=== PATIENT | female | born 1995 | race Asian ===

== ENCOUNTER 2019-11-27 10:00 | Emergency (ER) | payer MEDICAID, SELFPAY ==
[2019-11-27 10:13] VITALS: BP 112/73; PULSE 82; RESP 16; TEMP 36.4; O2SAT 100
[2019-11-27 10:17] VITALS: BP 112/73; PULSE 82; RESP 16; TEMP 36.4; O2SAT 100; BMI 22.8
--- NOTE | 2019-11-27 10:56 | ED.FEMALEGU ---
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 HE HAS AN INSURANCE PROBLEM Related Data Allergies Allergy/AdvReac Type Severity Reaction Status Date / Time No Known Allergies Allergy Unverified 11/13/19 19:51 [No Known Allergies*] Review of Systems Review of Systems: NO ABDOMINAL PAIN NO FEVER NO CHILLS NO VOMITING NO NEW SWELLING PMFSH Past Medical History Source: nursing notes reviewed Medical History Bartholin cyst Medical history reviewed with no changes No pertinent past medical history Social History Social History Alcohol intake: never Smoking Status: Never smoker Smoked in Last 30 Days: No Use of substances other than those prescribed or required for medical reasons: No Advance Directives: No Advance Directives Information Provided: No Physical Exam Vital Signs and I&O and Narrative: Vital Signs and I&O: Vital Signs Temp 97.6 F 11/27/19 10:17 Pulse 82 11/27/19 10:17 Resp 16 11/27/19 10:17 BP 112/73 11/27/19 10:17 Pulse Ox 100 11/27/19 10:17 Intake & Output 11/26/19 11/27/19 11/27/19 18:59 06:59 18:59 Weight 56.699 kg Body Mass Index 22.8 EXAM WELL-APPEARING COMFORTABLE NO ACUTE DISTRESS NECK IS SUPPLE, NO RESPIRATORY DISTRESS ABDOMEN IS SOFT AND NONTENDER PELVIC THERE IS NO EVIDENCE OF ABSCESS OR CELLULITIS AND THERE IS A PACHECO CATHETER IN PLACE NEURO A&O X3 Course Reevaluation(s) Reevaluation #1: word catheter was easily removed with no remaining discharge swelling no redness no sign of infection or abscess Discharge Plan Discharge Clinical Impression: Abscess of Bartholin's gland Patient Disposition: Home, Self-Care Additional Instructions: return to ER any time for any worse condition or concerns Follow with laser/electro optics technician doctor for further evaluation Referrals: Almas Scott MD [Physician] - None ( follow routinely with artist relationship manager for 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
== END 2019-11-27 11:40 | disposition home or self-care (01) ==
PROVIDERS: Emergency Provider Emergency Medicine; PCP General Practice
DX: N75.0 Cyst of Bartholin's gland (principal); Z48.00 Encounter for change or removal of nonsurgical wound dressing
CPT/HCPCS: 99284

== ENCOUNTER 2022-02-22 09:09 | Outpatient (REF) | payer OTHER, SELFPAY ==
[2022-02-22 09:58] LABS: COVID-19 Test Negative (Negative); IDNOW Serial# 16C4AD1C
== END 2022-02-22 09:10 | disposition home or self-care (01) ==
LOC: HO.LAB 09:09
PROVIDERS: Visit Provider Internal Medicine
DX: Z20.822 Contact with and (suspected) exposure to COVID-19 (principal)
CPT/HCPCS: 87635; C9803

== ENCOUNTER 2022-08-10 08:11 | Outpatient (REF) | payer BC, SELFPAY ==
[2022-08-11 00:56] LABS: CT PCR NOT DETECTED (Not Detect.); NG PCR NOT DETECTED (Not Detect.)
== END 2022-08-10 08:12 | disposition home or self-care (01) ==
LOC: HO.LNP 08:11
PROVIDERS: PCP General Practice; Visit Provider Obstetrics & Gynecology
DX: N76.4 Abscess of vulva (principal); T81.89XA Other complications of procedures, not elsewhere classified, initial encounter; R87.612 Low grade squamous intraepithelial lesion on cytologic smear of cervix (LGSIL); Z20.2 Contact with and (suspected) exposure to infections with a predominantly sexual mode of transmission
CPT/HCPCS: 0353U; 10061; 56405; 87070; 87205; 88305; 88312; 88342

== ENCOUNTER 2022-09-06 09:43 | Outpatient (REF) | payer BC, SELFPAY | END 2022-09-06 09:44 | disposition home or self-care (01) | LOC: HO.LNP 09:43 | PROVIDERS: PCP General Practice; Visit Provider Obstetrics & Gynecology | DX: R87.612 Low grade squamous intraepithelial lesion on cytologic smear of cervix (LGSIL) (principal); L98.499 Non-pressure chronic ulcer of skin of other sites with unspecified severity; T81.89XA Other complications of procedures, not elsewhere classified, initial encounter | CPT/HCPCS: 57454; 81025; 88305 ==

== ENCOUNTER 2022-09-06 09:43 | Outpatient (AMB) | payer BC, SELFPAY ==
--- NOTE | 2022-09-06 09:52 | MHC.OFFVIS ---
Intake Vital Signs 09/06/22 10:00 Height 5 ft 1 in Weight 141 lb 1.533 oz BMI 26.7 BP 114/66 Intake Visit Reasons: COLPO Appliance Servicer Required: No Information Interpreted: non-clinical & clinical Director Student Union: Director Student Union Present Accompanied by: Self / Same As Patient Allergies No Known Allergies [No Known Allergies*] Allergy (Unverified 09/06/22 10:00) Is last menstrual period known: Yes Last menstrual period: 08/10/22 HPI HPI Comments History of Present Illness Details Presenting for upper after left vulvar I&D abscess drainage and debridement. The pathology showed the following: Vulva, left labia majora, biopsy:? Skin/squamous mucosa with focal ulceration, reactive epithelial changes and marked acute and chronic inflammation with prominent plasma cells; negative for dysplasia.? See description and comment. The patient is doing well the left labial abscess has almost resolved not completed. 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 [employer] Sexual orientation: Straight/Heterosexual Gender identity: Female Female Reproductive History Menstrual Date of last menstrual period: 08/10/22 Review of Systems Const All systems reviewed & are unremarkable except as noted in HPI and below Physical Exam Vital Signs: Last Vital Signs BP 114/66 09/06/22 10:00 BMI result Body Mass Index 26.7 General: Yes no CVA tenderness External Female Exam: normal external appearance, normal appearance of the urethra and other (Left-sided 0.2 cm open incision still draining, no erythema) Speculum Exam - Vagina: normal appearance of the vagina, normal palpation, no lesions and no masses Speculum Exam - Cervix: normal appearance of the cervix, normal palpation, no lesions, no masses and nontender Bimanual exam- vagina & uterus: normal bimanual exam, normal palpation, uterine size normal, normal palpation, uterine shape normal, No Cervical tenderness present and non-tender Bimanual Exam- Adnexa, other: normal adnexae Back/Spine/Pelvis Back: no CVA tenderness Office Procedures Colposcopy Before the procedure was started discussed with the patient the procedure, alternatives & all the risks associated with the procedure (bleeding, infection, injury to vagina, bladder, vessels, possible need for transfusion with all its risks) then patient signed the consent Pap smear = LSIL Urine test done in the office was negative Speculum inserted, acetic acid used Colposcopy done Transformation zone seen, acetowhite lesions identified at 5+7 o?clock, cervical biopsies taken from 5+7 o?clock, ECC done afterwards. Vaginoscopy of the upper vagina showed no evidence of any aceto-white lesions Monsel solution used for hemostasis. The patient tolerated well . At the end the patient was instructed to call if temp>100.4, abdominal pain, n/v, bleeding; The patient was given the following instructions: nothing per vagina, no intercourse or bath tub use. All questions answered the patient verbalized understanding. Instructed the patient to make an appointment in 2 weeks for follow-up This note was generated with a voice recognition program. Some errors may have been overlooked during the review of this note. Sometimes these errors may affect the content or meaning of a given sentence. 70909-[id number] of cervix including upper vagina with biopsy and ECC Procedure code (CPT) selection complete Results AMB Test Urine AMB Test Urine Negative Last Edit by Danielle Zamudio CMA on 09/06/22 10:14 Assessment & Plan Assessment & Plan (1) LGSIL on Pap smear of cervix: Code(s): R87.612 - Low grade squamous intraepithelial lesion on cytologic smear of cervix (LGSIL) Plan: Colpo done, see procedure note (2) Nonhealing nonsurgical wound: Comment: Chronic Abscess of Left labia majora status post debridement Code(s): T14.8XXA - Other injury of unspecified body region, initial encounter Plan: Discussed with the patient the the pathology, the patient was reassured. Instructions given the patient to call in case left vulvar area is not healing and is persistently draining. All questions answered, the patient verbalized understanding Orders: Orders AMB Colposcopy Today R87.612 - Low grade squamous intraepithelial lesion on cytologic smear of cervix (LGSIL) AMB HCG Urine Test Today Z32.02 - Encounter for test, result negative Surgical Today R87.612 - Low grade squamous intraepithelial lesion on cytologic smear of cervix (LGSIL) Coding Level of Care Code Est Pt Level 3 (69903) Procedure Only Diagnoses LGSIL on Pap smear of cervix R87.612 Nonhealing nonsurgical wound T14.8XXA CPT Codes Colposcopy - CPT: 74794-Iagrvtotl of cervix including upper vagina with biopsy and ECC ([id number])
[2022-09-06 10:00] VITALS: BP 114/66; BMI 26.7
== END 2022-09-06 10:16 | disposition home or self-care (01) ==
LOC: HO.HWS 09:43
PROVIDERS: PCP General Practice; Visit Provider Obstetrics & Gynecology
DX: R87.612 Low grade squamous intraepithelial lesion on cytologic smear of cervix (LGSIL) (principal); T14.8XXA Other injury of unspecified body region, initial encounter; Z32.02 Encounter for pregnancy test, result negative
CPT/HCPCS: 57454; 99213

== ENCOUNTER 2022-09-20 08:12 | Outpatient (AMB) | payer BC, SELFPAY ==
--- NOTE | 2022-09-20 08:20 | MHC.OFFVIS ---
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 The patient is doing well with no complaints. The pathology showed the following: A. Endocervix, curettage: Fragments of endocervical glands, negative for squamous intraepithelial lesion. B. Cervix, 5 o'clock, biopsy: Chronic cervicitis; negative for squamous intraepithelial lesion. C. Cervix, 7 o'clock, biopsy: Chronic cervicitis with reactive epithelial changes; negative for squamous intraepithelial lesion. 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 Sexual orientation: Straight/Heterosexual Gender identity: Female Female Reproductive History Menstrual Date of last menstrual period: 09/09/22 Review of Systems Const All systems reviewed & are unremarkable except as noted in HPI and below Reports as per HPI and Reports no additional complaints GI Reports no additional complaints Reports no additional complaints Assessment & Plan Assessment & Plan (1) LGSIL on Pap smear of cervix: Code(s): R87.612 - Low grade squamous intraepithelial lesion on cytologic smear of cervix (LGSIL) Plan: Discussed with the patient the pathology results of the colposcopy biopsies & endocervical curettage ( negative). Discussed with the patient the sensitivity specificity, positive and negative predictive value in detecting cervical cancer in addition discussed the regression, persistence and progression rates. Recommended co-testing in 12 months, if cytology and or HPV are abnormal will proceed was colposcopy biopsy and endocervical curettage. Instructions given to the patient to schedule a co test appointment in 1 year. All questions answered the patient verbalized understanding. Coding Level of Care Code Est Pt Level 3 (18826) Diagnoses LGSIL on Pap smear of cervix R87.612
[2022-09-20 08:22] VITALS: BMI 26.7
== END 2022-09-20 08:37 | disposition home or self-care (01) ==
LOC: HO.HWS 08:12
PROVIDERS: PCP General Practice; Visit Provider Obstetrics & Gynecology
DX: R87.612 Low grade squamous intraepithelial lesion on cytologic smear of cervix (LGSIL) (principal)
CPT/HCPCS: 99213

== ENCOUNTER → 2022-09-20 08:12 | Outpatient (BNVA) | payer BC, SELFPAY | PROVIDERS: PCP General Practice; Visit Provider Obstetrics & Gynecology ==

== ENCOUNTER 2023-09-10 12:46 | Outpatient (REF) | payer BC, SELFPAY ==
[2023-09-10 16:09] LABS: MANUAL DIFF FLAG NO
[2023-09-10 16:13] LABS: Basophils Absolute Auto 0.1 X10*3/uL (0.0-0.2); Basophils Percent Auto 0.6 % (0-2); Eosinophils Absolute Auto 0.4 X10*3/uL (0.0-0.4); Hematocrit 34.9 % (37.0-47.0); Hemoglobin 10.3 g/dl (12.0-16.0); Imm Gran Abs Auto 0.04 X10*3/uL (0.00-0.03); Imm Gran Pct Auto 0.3 % (0.0-0.4); Lymphocytes Absolute Auto 3.5 X10*3/uL (1.2-4.9); Lymphocytes Percent Auto 29.9 % (20-40); Mean Corpuscular HGB Conc 29.5 g/dl (31.0-35.0); Mean Corpuscular Hemoglobin 17.2 pg (27.0-33.0); Mean Platelet Volume 10.3 fL (9.4-12.3); Monocytes Absolute Auto 0.7 X10*3/uL (0.1-1.2); Monocytes Percent Auto 5.7 % (2-11); Neutrophils Absolute Auto 7.1 x10*3/uL (2.0-8.3); Neutrophils Percent Auto 60.5 % (45-73); Platelet Count 512 X10*3/uL (160-400); Red Cell Distribution Width 20.2 % (11.0-16.0); White Blood Count 11.7 X10*3/uL (4.8-10.8)
[2023-09-10 16:19] LABS: Mean Corpuscular Volume 58.2 fL (80.0-98.0)
[2023-09-10 17:29] LABS: TSH reflex Free T4 1.41 uIU/mL (0.32-4.0)
[2023-09-10 18:44] LABS: CT PCR NOT DETECTED (Not Detect.); NG PCR NOT DETECTED (Not Detect.)
[2023-09-11 04:47] LABS: HBS Num1 0.45 mIU/mL (0-7.99); HBc Num1 0.14 S/CO (0.00-0.79); HBsAGNum1 0.22 S/CO (0.00-0.99); HIV AB/AG Nonreactive (Nonreactive); HIV Num 1 0.06 S/CO (0.00-0.99); Hepatitis B Core Antibody Nonreactive (Nonreactive); Hepatitis B Surface Antigen Negative (Negative); ~Hepatitis B Surface Antibody NONREACTIVE (Nonreactive); ~Hepatitis C Antibody Nonreactive (Nonreactive)
[2023-09-11 09:34] LABS: RPR Rapid Plasma Reagin NON-REACTIVE (NON-REACTIVE)
== END 2023-09-10 12:47 | disposition home or self-care (01) ==
LOC: HO.HHCL 12:46
PROVIDERS: Visit Provider Nurse Practitioner
DX: Z13.9 Encounter for screening, unspecified (principal); R53.83 Other fatigue
CPT/HCPCS: 36415; 84443; 85025; 86592; 86704; 86706; 86803; 87340; 87389; 87491; 87591

== ENCOUNTER 2024-10-14 10:32 | Outpatient (REF) | payer OTHER, SELFPAY ==
--- OUTSIDE RECORDS SUMMARY | 2024-10-14 12:01 | XMS_ITS | Encounter Summary ---
Author Organization [employer] Address [address] [place] [address] [place] [address] Care Team Providers Care Site Promotion Agent Name Role Phone Ingrid Granado MD Primary Care Provider [phone] Encounter Details Date Type Department Care Team (Latest Contact Info) Description 10/14/2024 Travel Social History Tobacco Use Types Packs/Day Years Used Date Smoking Tobacco: Never Smokeless Tobacco: Never Alcohol Use Standard Drinks/Week Comments Never 0 (1 standard drink = 0.6 oz pur e alcohol) Alcohol Answer Date Recorded How often do you have a drink containing alcohol ? 1 10/14/2024 How many drinks containing a lcohol do you have on a typical day when you are drinking? 0 10/14/2024 How often do you have six or more drinks on one occasion? 0 10/14/2024 Depression Answer Date Recorded Patient Health Questionnaire-9 Score 0 10/14/2024 Patient Health Questionnaire-9 Score 0 10/14/2024 Last PHQ-9: Questionnaire Data Not on file 0 10/14/2024 Housing Stability Answer Date Recorded What is your housing situation today? I have aziza christianson 10/14/[address] you li ve. Do you have problems with any of the following? None of the above 10/14/2024 Food Insecurity Answer Date Recorded Within the past 12 months, y ou worried that your food would run out before you got money to buy more: Never True 10/14/2024 Within the past 12 months,th e food you bought just didn't last and you didn't have enough money to get more: Never True Transportation Answer Date Recorded In the past 12 months, has l ack of transportation kept you from medical appts, meetings, work or from getting things needed for daily living? No 10/14/2024 Utilities Answer Date Recorded In the past 12 months, has t he electric, gas, oil or water company threatened to shut off services in your home? No 10/14/2024 Depression Answer Date Recorded Patient Health Questionnaire-2 Score 0 10/14/2024 Internet Access Answer Date Recorded Internet Access Q1 Yes 10/14/2024 Internet Access Q2 Not on file 10/14/2024 Comments No Sex and Gender Information Value Date Recorded Sex Assigned at Female 12/26/2021 10:37 AM EDT Legal Sex Female 10:37 AM EDT Gender Identity Female 12/26/2021 10:37 AM EDT Sexual Orientation Straight 12/26/2021 10 :37 AM EDT documented as of this encounter Functional Status * Over the past 2 weeks, how often have you been bothered by any of the following problems? Question Answer Date of Assessment Author Patient Health Questionnaire-2 Score 0 10/14/2024 10:12 AM EDT Alisia Powell MA * Little interest or pleasure in doing things Answer Date of Assessment Author Not at all 10/14/2024 10:12 AM EDT Alisia Cohn MA * Feeling down, depressed, or hopeless Answer Date of Assessment Author Not at all 10/14/2024 10:12 AM EDT Alisia Cohn MA * Trouble falling or staying asleep, or sleeping too much Answer Date of Assessment Author Not at all 10/14/2024 10:12 AM EDT Alisia Cohn MA * Feeling tired or having little energy Answer Date of Assessment Author Not at all 10/14/2024 10:12 AM EDT Alisia Cohn MA * Poor appetite or overeating Answer Date of Assessment Author Not at all 10/14/2024 10:12 AM EDT Alisia Cohn MA * Feeling bad about yourself - or that you are a failure or have let yourself or your family down Answer Date of Assessment Author Not at all 10/14/2024 10:12 AM EDT Alisia Cohn MA * Trouble concentrating on things, such as reading the newspaper or watching television Answer Date of Assessment Author Not at all 10/14/2024 10:12 AM EDT Alisia Cohn MA * Moving or speaking so slowly that other people could have noticed? Or the opposite - being so fidgety or restless that you have been moving around a lot more than usual. Answer Date of Assessment Author Not at all 10/14/2024 10:12 AM EDT Alisia Cohn MA * Thoughts that you would be better off or hurting yourself in some way Answer Date of Assessment Author Not at all 10/14/2024 10:12 AM EDT Alisia Cohn MA * Patient Health Questionnaire-9 Score Answer Date of Assessment Author 0 10/14/2024 10:12 AM EDT Alisia Cohn MA * Over the last 2 weeks, how often have you been bothered by any of the following problems? Question Answer Date of Assessment Author Feeling nervous, anxious, or on edge 0 10/14/2024 10:12 AM EDT Alisia Kapoor MA Not being able to stop or control worrying 0 10/14/2024 10:12 AM EDT Alisia Kapoor MA Worrying too much about different things 0 10/14/2024 10:12 AM EDT Alisia Kapoor MA Trouble relaxing 0 10/14/2024 10:12 AM BRAULIOT Alisia Kapoor MA Being so restless that it is hard to sit still 0 10/14/2024 10:12 AM BRAULIOT Alisia Kapoor MA Becoming easily annoyed or irritable 0 10/14/2024 10:12 AM BRAULIOT Alisia Kapoor MA Feeling afraid as if something awful might happen 0 10/14/2024 10:12 AM EDT Alisia Soto MA DAYRON-7 Total Score 0 10/14/2024 10:12 AM EDT Alisia Kapoor MA documented as of this encounter Plan of Treatment Not on file documented as of this encounter Visit Diagnoses Not on filedocumented in this encounter Additional Health Concerns Assessment Noted Time PHQ-9 Depression Total Score: 0 10/15/19 25 10:12 AM EDT documented as of this encounter Care Teams Site Promotion Agent Relationship Specialty Start Date End Date Ingrid Granado MD [address] [place] [address] PCP - General Family Medicine 10/31/19 documented as of this encounter
--- OUTSIDE RECORDS SUMMARY | 2024-10-14 12:01 | XMS_ITS | Clinical Summary ---
Author Organization [facility] Address [address] [facility] [address] [place] [id number] Phone Care Team Providers Care Oyster Grader Name Role Phone Ingrid Granado MD Primary Care Provider + Allergies No known active allergies Medications ferrous sulfate 324 mg (65 mg [place] iron) TbEC Take 324 mg by mouth daily with breakfast. Active ascorbic acid, vitamin C, (VITAMIN C) 250 MG tablet Take 250 mg by mouth daily. 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 Recommend referral for gland excision. Plan consultation with Dr. Palm. Social History Tobacco Use Types Packs/Day Years Used Date Smoking Tobacco: Never Smokeless Tobacco: Never Tobacco Cessation:Counseling Given: Not Answered Alcohol Use Standard Drinks/Week Comments Yes 0 (1 standard drink = 0.6 oz pur e alcohol) OCC Education Answer Date Recorded Are you interested in more education? Not on kassy e 10/25/2023 Are you concerned about learning? Not on file 10/25/2023 No 10/25/2023 No 10/25/2023 Digital Access Answer Date Recorded No 10/25/2023 No 10/25/2023 Reliable internet access at home? Not on file 10/25/2023 Device with a working camera? Not on file Comments Unknown Sex and Gender Information Value Date Recorded Sex Assigned at Female 10/25/2023 6:48 PM EDT Legal Sex Female 3:03 PM EDT Gender Identity Female 10/25/2023 6:48 PM EDT Sexual Orientation Straight 10/25/2023 6: 48 PM EDT Last Filed Vital Signs Vital Sign Reading Time Taken Comments Blood Pressure 110/70 11/13/2023 10:51 AM EDT Pulse - - Temperature - - Respiratory Rate - - Oxygen Saturation - - Inhaled Oxygen Concentration - - Weight 73 kg (161 lb) 11/13/2023 10:51 AM EDT Height 154.9 cm (5' 1 ) 11/13/2023 10:51 AM EDT Body Mass Index 30.42 11/13/2023 10:51 AM EDT Plan of Treatment Health Maintenance Due Date Last Done Comments Adult Td,Tdap Booster 1997 DEPRESSION SCREENING 2009 HEPATITIS C SCREENING 11/24/2015 HIV ONE-TIME SCREENING (18-6 5 YEARS) 11/24/2015 PAP SMEAR 2018 COVID-19 VACCINE (2 - 2023-2 5 season) 2023 09/28/2020 HPV VACCINES Completed 09/13/2020, 06/15/2020, 04/15/2020 SMOKING STATUS SCREENING (On ce After 26 Yrs) Completed 11/13/2023 HEPATITIS A VACCINES Aged Out No long er eligible based on patient's age to complete this topic HIB VACCINES Aged Out No longer eligi ble based on patient's age to complete this topic MENINGOCOCCAL VACCINES (ACWY) Aged Out No longer eligible based on patient's age to complete this topic MENINGOCOCCAL VACCINES (B) Aged Out N o longer eligible based on patient's age to complete this topic PNEUMOCOCCAL VACCINES (0-49 years) Aged Out No longer eligible b ased on patient's age to complete this topic Medical Devices Not on file Insurance OUT OF STATE PPO BLUE CROSS OUT OF STATE PPO BLUE CROSS OUT OF STATE PPO BLUE CROSS OUT OF STATE PPO CROSS OUT OF STATE PPO OUT [facility] PPO Care Teams Oyster Grader Relationship Specialty Start Date End Date Ingrid Granado MD PCP - General Family Medicine 10/25/23 Additional Source Comments The information contained in this document represents components of the legal health record. It is not the complete legal health record.[facility]
--- OUTSIDE RECORDS SUMMARY | 2024-10-14 12:01 | XMS_ITS | Clinical Summary ---
Author Organization [facility] Address [address] [place] [address] Phone Care Team Providers Care Personnel And Payroll Technician Name Role Phone Unavailable Primary Care Provider Unavailabl e Allergies No known active allergies Medications No known medications Active Problems Problem Noted Date Diagnosed Date Bartholin gland cyst 03/25/2024 Overview (03/25/2024): History of multiple Bartholin's gland cysts and abscesses. Encounters Date Type Department Care Team Description 08/20/2024 12:25 PM EDT - 08/20/2024 11:59 PM EDT Hospital Encounter [facility] Ultrasound [address] [place] [address] Menorrhagia with regular cycle; Dysmenorrhea Discharge Disposition: Home or Self Care 08/05/2024 11:20 AM EDT Office Visit [facility] [address] [place] [address] Kennedy Palm MD Menorrhagia with regular cycle (Primary Dx); Dysmenorrhea from Last 3 Months Surgical History Surgery Date Site/Laterality Comments I&D / EXCISION MARSUPIALIZAT ION BARTHOLIN'S GLAND CYST / LYSIS LESIONS VULVECTOMY 04/30/2024 Left Left posterior partial simple vulvectomy with 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 Medical History Medical History Date Comments Bartholin gland cyst Anemia Social History Tobacco Use Types Packs/Day Years Used Date Smoking Tobacco: Never Smokeless Tobacco: Never Tobacco Cessation:Counseling Given: Not Answered Alcohol Use Standard Drinks/Week Comments Yes 0 (1 standard drink = 0.6 oz pur e alcohol) Occasionally Interpersonal Safety Answer Date Record ed Physical Abuse 04/30/2024 Verbal Abuse 04/30/2024 Comments No Sex and Gender Information Value Date Recorded Sex Assigned at Female 04/25/2024 8:59 AM EST Legal Sex Female 9:22 AM EDT Gender Identity Female 04/25/2024 8:59 AM EST Sexual Orientation Straight 04/25/2024 8: 59 AM EST 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 [employer] Not on file Not on file Not on file Obstetrics History Last Filed Vital Signs Vital Sign Reading Time Taken Comments Blood Pressure 131/81 08/05/2024 11:22 AM EDT Pulse 91 08/05/2024 11:22 AM EDT Temperature 36.2 C (97.2 F) 08/05/2024 11:22 AM EDT Respiratory Rate 16 04/30/2024 1:41 PM EST Oxygen Saturation 100% 04/30/2024 1:41 PM EST Inhaled Oxygen Concentration - - Weight 70.3 kg (155 lb) 08/05/2024 11:22 AM EDT Height 157.5 cm (5' 2 ) 03/25/2024 9:40 AM EST Body Mass Index 28.35 03/25/2024 9:40 AM EST Plan of Treatment Health Maintenance Due Date Last Done Comments DTaP,Tdap,and Td Vaccines (1 - Tdap) 2016 Hepatitis B Vaccines (1 of 3 - 19+ 3-dose series) 2016 Cervical Cancer Screening: P ap Smear 2018 COVID-19 Vaccine (2 - 2023-2 5 season) 2023 09/28/2020 Social Influencers of Health Screening 12/15/2023 Depression Screening 02/27/2024 Influenza Vaccine (#1) 2024 01/07/2020 HPV Vaccines Completed 09/13/2020, 06/15/2020, 04/15/2020 HIV Screening Completed 09/10/2023 Hepatitis C Screening Completed 09/10/2023 HIB Vaccines Aged Out No longer eligi ble based on patient's age to complete this topic Hepatitis A Vaccines Aged Out No long er eligible based on patient's age to complete this topic IPV Vaccines Aged Out No longer eligi ble based on patient's age to complete this topic MMR Vaccines Aged Out No longer eligi ble based on patient's age to complete this topic Meningococcal ACWY Vaccine Aged Out N o longer eligible based on patient's age to complete this topic Meningococcal B Vaccine Aged Out No l onger eligible based on patient's age to complete this topic Pneumococcal Vaccine: Pediatrics (0 to 5 Years) and At-Risk Patients (6 to 49 Years) Aged Out No longer eligible b ased on patient's age to complete this topic RSV Immunization Patients Under 20 months Aged Out No longer eligible b ased on patient's age to complete this topic Varicella Vaccines Aged Out No longer eligible based on patient's age to complete this topic Medical Devices Implanted Type 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 Device Identifier Shelf Expiration Date Model / Serial / Lot Hemostat Flour Collgn 1gm Avitene - Sna - [id number] Implanted:Qty: 1 on 04/30/2024 by Kennedy Palm MD at [facility] Hemostasis Left: Vulva CR BARD - DAVOL DIV 02/22/2027 [id number] / NA / [id number] Kit Surgiflo W 2000 Units Ster Lyo - Sna - [id number] Implanted:Qty: 1 on 04/30/2024 by Kennedy Palm MD at [facility] Hemostasis Left: Vulva [employer] 11/25/2024 [id number] / NA / [id number] Procedures Procedure Name Priority Date/Time Associated Diagnosis Comments THYROID STIMULATING HORMONE WITH REFLEX TO FREE T4 AND FREE T3 Routine 08/20/2024 1:20 PM EDT Menorrhagia with regular cycle US PELVIS NON OB COMPLETE W TRANSVAGINAL Routine 08/20/2024 1:13 PM EDT Menorrhagia with regular cycle Dysmenorrhea from Last 3 Months Results * Thyroid stimulating hormone with reflex to free t4 and free t3 (08/20/2024 1:20 PM EDT) TSH 1.85 0.40 - 4.00 mcIU/mL LAB CHEMISTRY METHOD 08/20/2024 3:17 PM EDT [facility] Blood Venous blood specimen / Unknown Venipuncture / Unknown 08/20/2024 1:20 PM EDT 08/20/2024 1:39 PM EDT us Kennedy Palm MD LAB BLOOD ORDERABLES Final Resul t [facility] [address] [place] [address], [place] [phone] * US Pelvis Non OB Complete w Transvaginal (08/20/2024 1:13 PM EDT) Anatomical Region Laterality Modality Body, Pelvis Ultrasound 08/20/2024 5:45 PM EDT Impressions 08/20/2024 5:47 PM EDT Impression: 1. 1.5 cm simple cyst in the right ovary, requiring no specific follow-up. 2. Normal uterus. Telerad MIGUEL ANGEL ([id number]) -------- FINAL REPORT -------- Dictated By: Afsaneh Ontiveros Dictated Date: 08/20/2024 17:45 ET Assigned Physician: Afsaneh Ontiveros Reviewed and Electronically Signed By: Afsaneh Ontiveros Signed Date: 08/20/2024 17:47 ET Workstation ID: [id number] Transcribed By: Self Edit Transcribed Date: 08/20/2024 17:45 ET Narrative 08/20/2024 5:47 PM EDT History: 28-year-old nulliparous female, LMP 07/28/24, with menorrhagia and dysmenorrhea. Findings: Transvesical imaging of the pelvis is supplemented with transvaginal imaging for better detail of the uterus and adnexa. The uterus is normal in size and configuration, measuring 6.6 cm in length by 3.7 cm in depth by 4.7 cm in width. The endometrial echo complex measures 12 mm in thickness double layer. No endometrial fluid collections are seen. The myometrium is homogeneous. A trace amount of free fluid is noted in the cul-de-sac. The right ovary measures 2.3 x 1.9 x 2.3 cm and contains a simple cyst measuring 1.7 x 1.3 x 1.5 cm. There is normal vascular flow within the ovary by Doppler analysis. The left ovary is unremarkable, measuring 2.5 x 1.9 x 1.3 cm, with normal vascular flow by Doppler analysis. Small follicles are present. Procedure Note Afsaneh Ontiveros MD - 08/20/2024 History: 28-year-old nulliparous female, LMP 07/28/24, with menorrhagia anddysmenorrhea. Findings: Transvesical imaging of the pelvis is supplemented with transvaginalimaging for better detail of the uterus and adnexa. The uterus is normal in size and configuration, measuring 6.6 cm in lengthby 3.7 cm in depth by 4.7 cm in width. The endometrial echo complexmeasures 12 mm in thickness double layer. No endometrial fluid collectionsare seen. The myometrium is homogeneous. A trace amount of free fluid is noted in the cul-de-sac. The right ovary measures 2.3 x 1.9 x 2.3 cm and contains a simple cystmeasuring 1.7 x 1.3 x 1.5 cm. There is normal vascular flow within theovary by Doppler analysis. The left ovary is unremarkable, measuring 2.5 x 1.9 x 1.3 cm, with normalvascular flow by Doppler analysis. Small follicles are present. IMPRESSION: Impression: 1. 1.5 cm simple cyst in the right ovary, requiring no specificfollow-up. 2. Normal uterus. Telerad MIGUEL ANGEL ([id number]) -------- FINAL REPORT -------- Dictated By: Afsaneh Ontiveros Dictated Date: 08/20/2024 17:45 ET Assigned Physician: Afsaneh Ontiveros Reviewed and Electronically Signed By: Afsaneh Ontiveros Signed Date: 08/20/2024 17:47 ET Workstation ID: [id number] Transcribed By: Self Edit Transcribed Date: 08/20/2024 17:45 ET Kennedy Palm MD [facility] PROCEDURES Final Result from Last 3 Months Insurance [employer]
[2024-10-14 13:26] LABS: Hematocrit 37.3 % (37.0-47.0); Hemoglobin 11.3 g/dl (12.0-16.0); Imm Gran Abs Auto 0.04 X10*3/uL (0.00-0.03); Imm Gran Pct Auto 0.4 % (0.0-0.4); Lymphocytes Absolute Auto 2.9 X10*3/uL (1.2-4.9); Mean Corpuscular HGB Conc 30.3 g/dl (31.0-35.0); Mean Corpuscular Hemoglobin 18.5 pg (27.0-33.0); NRBC Abs Auto 0.000 X10*3/uL (0.0-0.012); NRBC Pct Auto 0.0 /100WBC (0.0-0.2); Platelet Count 469 X10*3/uL (160-400); Red Blood Count 6.11 X10*6/uL (4.20-5.50); White Blood Count 9.9 X10*3/uL (4.8-10.8)
[2024-10-14 13:33] LABS: MANUAL DIFF FLAG SCAN; Mean Corpuscular Volume 61.0 fL (80.0-98.0)
[2024-10-14 13:47] LABS: Alanine Aminotransferase 19 U/L (0-31); Albumin Level 4.4 g/dL (3.5-5.0); Alkaline Phosphatase 90 U/L (39-117); Anion Gap 13 (12-20); Aspartate Amino Transferase 25 U/L (5-31); Blood Urea Nitrogen 12 mg/dL (9-16); Calcium 9.6 mg/dL (8.4-10.2); Carbon Dioxide 24 mmol/L (22-29); Chloride 107 mmol/L (96-108); Estimated Glomerular Filt Rate > 60; Potassium 3.9 mmol/L (3.3-5.1); Sodium 140 mmol/L (135-145); Total Protein 8.0 g/dL (6.5-8.0)
[2024-10-14 13:50] LABS: Hemoglobin A1C 105.4469 umol/L; Total Hemoglobin (HGBA1C) 3005.3064 umol/L
== END 2024-10-14 10:33 | disposition home or self-care (01) ==
LOC: HO.HHCL 10:32
PROVIDERS: PCP General Practice; Visit Provider General Practice
DX: E66.3 Overweight (principal)
CPT/HCPCS: 36415; 80053; 83036; 85025